=== PATIENT | female | born 1990 | race Two or more races ===

== ENCOUNTER 2020-05-24 20:02 | Emergency (ER) | payer SELFPAY ==
[~2020-05-24] VITALS: Ht 152.4 cm; Wt 59.0 kg
[2020-05-24 21:15] VITALS: BP 109/63
[2020-05-24] MEDS ORDERED: MORPHINE SULF INJ 2 MG/ML SYRINGE 1ML IM ONE (21:45)
[2020-05-24] MEDS ORDERED: ONDANSETRON ODT 4 MG TAB PO ONE (21:45)
[2020-05-24] MEDS ORDERED: ALPRAZolam 0.5 MG TAB PO ONE (23:00)
[2020-05-25] MEDS ORDERED: KETOROLAC TROMETH 60MG/2ML VIAL IM ONE (00:15)
[2020-05-25] MEDS ORDERED: cefTRIAXone SOD 1,000 MG VL IM ONE (00:15)
[2020-05-25] MEDS ORDERED: TETANUS-DIPTH-ACEL PERTUSSIS 0.5ML SYR Tdap IM ONE (00:15)
[2020-05-25] MEDS ORDERED: NEOMYCIN-BACITRACIN-POLYM UNITDOSE PKG TOP OINT TOP ONE (00:30)
== END 2020-05-25 01:04 | disposition home or self-care (01) ==
LOC: EDBD 20:02 → ER 20:02
DX: S92.014A Nondisplaced fracture of body of right calcaneus, initial encounter for closed fracture (principal); S80.211A Abrasion, right knee, initial encounter; V49.9XXA Car occupant (driver) (passenger) injured in unspecified traffic accident, initial encounter; Y93.89 Activity, other specified; Y92.89 Other specified places as the place of occurrence of the external cause; Y99.8 Other external cause status
CPT/HCPCS: 12002; 29515; 71250; 73610; 90471; 90715; 96372; 99284; J0696; J1885; J2270; Q0162